=== PATIENT | male | born 1960 | race Caucasian/White ===

== ENCOUNTER 2022-03-03 05:07 | Observation (INO) | payer OTHER, SELFPAY ==
[2022-03-03] VITALS (53 sets, daily range): BP systolic 93–121; BP diastolic 56–82; PULSE 68–87; RESP 11–25; TEMP 36.2–36.7; O2SAT 94–100; BMI 42.8
--- NOTE | ~2022-03-03 | MR_ITS ---
. EXAMINATION: MR brain/brain stem wo/w con DATE: 03/04/2022 08:58 INDICATION: Transient ischemic attack. TECHNIQUE: Magnetic resonance imaging (MRI) of the brain and brainstem was performed without and with 20 mL MultiHance intravenous contrast. COMPARISON: Head CT 03/03/2022 FINDINGS: There are small old infarcts in left cerebellum. There are scattered areas of nonspecific i ncreased T2-weighted signal intensity in the cerebral white matter, which is within normal limits for the patient's age. There is no intracranial hemorrhage, acute infarction, or abnormal intracranial m ass lesion. The ventricles are normal in size. The paranasal sinuses are clear. The orbits are normal . The mastoid air cells are normal. IMPRESSION: 1. 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 Reviewed, dictated and finalized at location A.
--- NOTE | ~2022-03-03 | XR_ITS ---
EXAMINATION: XR chest 1V portable DATE: 03/03/2022 06:05 INDICATION: Stroke. Expressive aphasia. TECHNIQUE: A single frontal view of the chest was obtained. COMPARISON: None. FINDINGS: There are mild airspace opacities in left mid and lower lung zones. No pleural effusion or pneumothorax. The heart size is normal. IMPRESSION: 1. Mild airspace opacities in left mid and lower lung zones, consistent with atelectasis versus pneum onia. Reviewed, dictated and finalized at location A. IMPRESSION: 1. Mild airspace opacities in left mid and lower lung zones, consistent with at electasis versus pneumonia.
--- NOTE | ~2022-03-03 | CT_ITS ---
EXAMINATION: CT brain wo con DATE: 03/03/2022 05:32 INDICATION: Expressive aphasia. TECHNIQUE: Computed tomography (CT) of the head was performed without intravenous contrast. The mA wa s adjusted according to patient size. Iterative reconstruction technique was employed. The dose-lengt h product was 605.33 mGy-cm. COMPARISON: None FINDINGS: There is no intracranial hemorrhage, acute infarction, or abnormal intracranial mass lesion . There is a small old infarct in left cerebellum. The ventricles are normal in size. The orbits are normal. The paranasal sinuses are clear. The mastoid air cells are normal. IMPRESSION: 1. Small old infarct in left cerebellum. Reviewed, dictated and finalized at location A.
--- NOTE | ~2022-03-03 | US_ITS ---
EXAMINATION: US carotid duplex BI DATE: 03/03/2022 15:38 INDICATION: Expressive aphasia. TECHNIQUE: Grayscale, color Doppler, and pulsed Doppler images of the cervical carotid arteries were obtained. The degree of vessel stenosis is placed in one of the following categories: normal, <50%, 5 0-69%, >=70% but less than near-occlusion, near-occlusion, or total occlusion. Note that percent sten osis relative to normal distal artery lumen diameter is indirectly measured from velocity measurement s as described by Sarwat, et al. Radiology 2003; 229:340-346. COMPARISON: None. FINDINGS: RIGHT: The right common carotid artery (CCA) peak systolic velocity (PSV) is 90 cm/s. The right internal car otid artery (ICA) PSV is 76 cm/s. The right ICA end-diastolic velocity (EDV) is 27 cm/s. The right IC A/CCA PSV ratio is 0.8. Grayscale and color Doppler images yield an estimate of <50% diameter reducti on from plaque in the ICA. There is antegrade flow in the right vertebral artery. LEFT: The left CCA PSV is 101 cm/s. The left ICA PSV is 93 cm/s. The left ICA EDV is 37 cm/s. The left ICA/ CCA PSV ratio is 0.9. Grayscale and color Doppler images yield an estimate of <50% diameter reduction from plaque in the ICA. There is antegrade flow in the left vertebral artery. IMPRESSION: 1. <50% stenosis in the right internal carotid artery. 2. <50% stenosis in the left internal carotid artery. Reviewed, dictated and finalized at location A.
--- NOTE | 2022-03-03 05:09 | ECG_ITS ---
Measurements Intervals [place] Rate: 77 P: [place]: 0 QRS: 29 QRSD: 106 T: -67 QT: 385 QTc: 438 Interpretive Statements ATRIAL FIBRILLATION MODERATE T-WAVE ABNORMALITY, CONSIDER INFERIOR ISCHEMIA [-0.1+ mV T-WAVE IN II/aVF] POOR R WAVE PROGRESSION NO PREVIOUS ECG AVAILABLE FOR COMPARISON Electronically Signed On 03-03-2022 10:19:37 CDT by Marylin Smith MD
[2022-03-03 05:16] LABS: Glucose Point of Care 151 mg/dl (65-105)
--- NOTE | 2022-03-03 05:20 | PC.NURSE ---
Pt to CT scan via stretcher at this time.
[2022-03-03 05:22] LABS: Basophils Absolute Auto 0.1 K/mm3 (0.0-0.1); Basophils Percent Auto 0.5 % (0.2-1.2); Eosinophils Absolute Auto 0.2 K/mm3 (0-0.3); Eosinophils Percent Auto 1.6 % (0-4.4); Hematocrit 47.9 % (42.0-52.0); Hemoglobin 15.9 g/dL (14.0-18.0); Immature Granulocyte Absolute 0.04 K/mm3 (0.00-0.031); Immature Granulocyte Percent A 0.4 % (0-0.5); Lymphocytes Absolute Auto 2.81 K/mm3 (0.9-3.2); Lymphocytes Percent Auto 30.6 % (18.3-44.2); Mean Corpuscular HGB Conc 33.2 g/dl (32-36); Mean Corpuscular Volume 87.4 fl (80-100); Mean Platelet Volume 9.8 fl (7.4-10.4); Monocytes Absolute Auto 0.8 K/mm3 (0.1-0.6); Monocytes Percent Auto 8.6 % (2.6-8.5); Neutrophils Absolute Auto 5.4 K/mm3 (1.3-6.7); Neutrophils Percent Auto 58.3 % (45.5-73.1); Platelet Count Result 202 k/mm3 (150-375); Red Blood Count 5.48 M/mm3 (4.6-6.20); Red Cell Distribution Width 13.7 % (11.5-14.5); White Blood Count 9.2 K/mm3 (4.5-10.0)
--- NOTE | 2022-03-03 05:28 | ED.GENADULT ---
HPI - General Adult General Chief complaint: Altered Mental Status <Blake Falcon MD - Last Filed: 03/03/22 07:06> Stated complaint: AMS <Blake Falcon MD - Last Filed: 03/03/22 07:06> Time Seen by Provider: 03/03/22 05:08 <Blake Falcon MD - Last Filed: 03/03/22 07:06> History of Present Illness HPI narrative: Patient is a 61-year-old male who presents ER with altered mental status. Patient's woke up in bed and looked over at him and he was just staring. He would not respond to her stimulation. EMS arrived and patient will try to mumble but cannot speak. While in the the care of EMS began to speak some but was not clear. Upon arrival at the ER patient is awake alert and oriented x3. He reports that he recalls being in bed with his spouse and that she was worried and talking to him but he was unable to physically speak to her. He remembers everything that was occurring but reports inability to speak and when he could start to speak it being slurred. Denies any weakness in arm or leg. There is no reported facial droop. Patient denies history of CVA but does report that he has a clotting disorder. He takes warfarin for this. He is seen by a air and water filler at [facility]. Patient reports compliance with home medication. Denies history of irregular heartbeat or CVA. He reports he does have mitral valve regurgitation. <Blake Falcon MD - Last Filed: 03/03/22 07:06> Related Data Home medications: Home Medications Medication Instructions Recorded Confirmed lisinopril 5 mg tablet 5 mg HS 03/03/22 03/03/22 metoprolol succinate 100 mg 100 mg PO BID 03/03/22 03/03/22 tablet,extended release 24 hr torsemide 20 mg tablet 40 mg DAILY 03/03/22 03/03/22 warfarin 5 mg tablet 8 mg DAILY 03/03/22 03/03/22 <Blake Falcon MD - Last Filed: 03/03/22 07:06> Allergies/adverse reactions: Allergies Allergy/AdvReac Type Severity Reaction Status Date / Time No Known Allergies Allergy Verified 03/03/22 05:09 <Blake Falcon MD - Last Filed: 03/03/22 07:06> Review of Systems Review of Systems: All systems reviewed & are unremarkable except as noted in HPI and below <Blake Falcon MD - Last Filed: 03/03/22 07:06> Constitutional: Constitutional: Denies chills, Denies fatigue and Denies fever(s) <Blake Falcon MD - Last Filed: 03/03/22 07:06> Eyes: Eyes: Denies change in vision and Denies photophobia <Blake Falcon MD - Last Filed: 03/03/22 07:06> ENT: Denies nasal congestion and Denies sore throat <Blake Falcon MD - Last Filed: 03/03/22 07:06> Cardiovascular: Cardiovascular: Denies chest pain, Denies rapid heart rate and Denies radiating jaw, neck or arm pain <Blake Falcon MD - Last Filed: 03/03/22 07:06> Respiratory: Respiratory: Denies cough, Denies dyspnea and Denies wheezing <Blake Falcon MD - Last Filed: 03/03/22 07:06> Gastrointestinal: Gastrointestinal: Denies abdominal pain, Denies nausea and Denies vomiting <Blake Falcon MD - Last Filed: 03/03/22 07:06> Neurologic: Denies headache(s), Denies focal weakness and Denies numbness <Blake Falcon MD - Last Filed: 03/03/22 07:06> Comments: Inability to speak <Blake Falcon MD - Last Filed: 03/03/22 07:06> COUNT INCLUDES THE [facility] Past Medical History Medical History: Medical History (Updated 03/03/22 @ 07:06 by Blake Falcon MD) CHF (congestive heart failure) DVT (deep venous thrombosis) Hypertension Mitral valve regurgitation <Blake Falcon MD - Last Filed: 03/03/22 07:06> Surgical History Surgical History: Surgical History (Updated 03/03/22 @ 05:51 by Blake Falcon MD) H/O bone graft History of cholecystectomy <Blake Falcon MD - Last Filed: 03/03/22 07:06> Social History Social History: Social History (Updated 03/03/22 @ 05:52 by Blake Falcon MD) Social History: History of tobacco abuse <Lee
[2022-03-03 05:33] LABS: Alanine Aminotransferase 17 U/L (6-50); Albumin Level 3.9 g/dL (3.5-5.1); Alkaline Phosphatase 47 U/L (38-126); Anion Gap 9 mmol/L (8-16); Aspartate Amino Transferase 24 U/L (17-59); Bilirubin,Total 0.8 mg/dL (0.2-1.3); Blood Urea Nitrogen 19 mg/dL (9-20); Calcium 8.4 mg/dL (8.4-10.2); Carbon Dioxide 27 mmol/L (22-30); Chloride 101 mmol/L (98-107); Estimated CRCL calculation 103 ml/min; Estimated Glomerular Filt Rate > 60; Glucose 135 mg/dL (65-110); Potassium 3.7 mmol/L (3.4-5.0); Sodium 137 mmol/L (137-145)
[2022-03-03 05:34] LABS: INR 2.7; Prothrombin Time 27.4 Seconds (11.1-14.7)
[2022-03-03 05:35] LABS: Partial Thromboplastin Time 35.3 SECONDS (22.3-36.8)
[2022-03-03 06:26] LABS: Troponin I < 0.012 ng/mL (0.000-0.034)
[2022-03-03] MEDS: ASPIRIN 81 MG CHEWABLE TABLET 324 MG PO (06:30)
--- NOTE | 2022-03-03 07:18 | PC.NURSE ---
Patient report received from CHARISMA Horvath. All questions answered and care of patient assumed. Patient resting comfortably in the stretcher at this time. Call-light within reach. NAD at this time. VSS. Patient alert and oriented x4. Denies any complaints. Awaiting disposition. Transfer anticipated. Will continue to address needs at they arise.
[2022-03-03] MEDS: ATORVASTATIN 40 MG TABLET PO (07:38)
[2022-03-03 08:15] LABS: Appearance Urine Clear (Clear); Bilirubin Urine Negative (Negative); Blood Urine Negative (Negative); Color Urine Yellow (Yellow); Glucose Urine UA Negative (Negative); Ketones Urine Negative (Negative); Leukocyte Esterase Ur Negative LEU/UL (Negative); Nitrate Urine Negative (Negative); Protein Urine Negative (Negative); pH Urine 5.5 (5.0-9.0)
[2022-03-03 08:21] LABS: Add Urine Microscopic? NO
--- NOTE | 2022-03-03 08:35 | PC.NURSE ---
Received call from [facility] Transfer Center regarding transfer. They were inquiring as to whether or not patient still needed to be transferred. This RN communicated that we were still requesting a transfer and a bed was still requested. No ETA at this time.
[2022-03-03 10:01] LABS: SARS-CoV-2 RNA PCR Negative
--- NOTE | 2022-03-03 11:03 | PC.NURSE ---
Patient report given to CHARISMA Handy. All questions answered and care of patient transferred.
[2022-03-03] MEDS: TORSEMIDE 20 MG TABLET 40 MG PO (11:54)
--- NOTE | 2022-03-03 16:00 | ADMGEN ---
This patient, Roger Riley, was admitted to Medical Room 246-01. Patient/family oriented to hospital policies and general routines including ID bracelet, bed and alarms, visiting hours, pain management, procedures, bathroom and other care routines, personal items, smoking policy, room service/diet, and visiting hours. Information on how to activate the Rapid Response Team has been discussed. Patient/Family are encouraged to report perceived risks to care and to ask questions if they do not understand what they are told or what they should do.
--- NOTE | 2022-03-03 16:13 | PM.IMHP ---
H&P: HPI History of Present Illness Date/Time: 03/03/22 16:13 Chief Complaint: Acute mental status changes Narrative: ED-HPI narrative: ? ? ? Patient is a 61-year-old male who presents ER with altered mental status.? Patient's woke up in bed and looked over at him and he was just staring.? He would not respond to her stimulation.? EMS arrived and patient will try to mumble but cannot speak.? While in the the care of EMS began to speak some but was not clear.? Upon arrival at the ER patient is awake alert and oriented x3.? He reports that he recalls being in bed with his spouse and that she was worried and talking to him but he was unable to physically speak to her.? He remembers everything that was occurring but reports inability to speak and when he could start to speak it being slurred.? Denies any weakness in arm or leg.? There is no reported facial droop.? Patient denies history of CVA but does report that he has a clotting disorder.? He takes warfarin for this.? He is seen by a physics department chair at [facility].? Patient reports compliance with home medication.? Denies history of irregular heartbeat or CVA.? He reports he does have mitral valve regurgitation.? currently patient is ambulating in the room without difficulty, he has Fluent speech and speaks without difficulty or hesitation, and there is no asymmetry of his facial expression, CT scan of the head was negative for any acute injury, bilateral carotid ultrasound did not show any stenosis, to further evaluate will do MRI of the brain, cardiac echo and EEG, unfortunately there is no neurologist currently available in the hospital, ER physician contacted [facility] for Neurology transferred and [facility] pending bed availability, will have a PT OT evaluate the patient and further recommendation to follow. patient states he has a history of clotting disorder and chronic lower extremity DVT for which he is taking Coumadin and his INR is 2.7 therapeutic. Review of Systems Review of Systems: All systems reviewed & are unremarkable except as noted in HPI and below PMFSH Past Medical History Medical History (Updated 03/03/22 @ 07:06 by Blake Falcon MD) CHF (congestive heart failure) DVT (deep venous thrombosis) Hypertension Mitral valve regurgitation Surgical History Surgical History (Updated 03/03/22 @ 05:51 by Blake Falcon MD) H/O bone graft History of cholecystectomy Social History Social History (Updated 03/03/22 @ 05:52 by Blake Falcon MD) Social History: History of tobacco abuse Meds Home Medications and Allergies Home Medications Medication Instructions Recorded Confirmed Type lisinopril 5 mg tablet 5 mg HS 03/03/22 03/03/22 History metoprolol succinate 100 mg 100 mg PO BID 03/03/22 03/03/22 History tablet,extended release 24 hr torsemide 20 mg tablet 40 mg DAILY 03/03/22 03/03/22 History warfarin 5 mg tablet 8 mg DAILY 03/03/22 03/03/22 History Allergies Allergy/AdvReac Type Severity Reaction Status Date / Time No Known Allergies Allergy Verified 03/03/22 05:09 Vital Signs Vital Signs - 24 hr 03/03/22 05:02 03/03/22 05:20 03/03/22 05:50 Temperature 98.0 F Pulse Rate 79 81 76 Respiratory Rate 19 21 H 21 H Blood Pressure 120/75 107/69 96/58 L Pulse Oximetry 97 99 96 Oxygen Delivery Room Air 03/03/22 06:05 03/03/22 06:30 03/03/22 05:13 Temperature Pulse Rate 77 75 Respiratory Rate 17 21 H Blood Pressure 107/65 107/65 Pulse Oximetry 96 97 Oxygen Delivery 03/03/22 05:15 03/03/22 05:16 03/03/22 05:30 Temperature Pulse Rate 78 82 78 Respiratory Rate 25 H 23 H 21 H Blood Pressure 106/71 Pulse Oximetry 95 95 95 Oxygen Delivery 03/03/22 05:31 03/03/22 05:45 03/03/22 05:51 Temperature Pulse Rate 83 76 86 Respiratory Rate 24 H 18 20 Blood Pressure 101/68 93/72 L Pulse Oximetry 96 96 96 Oxygen Delivery
[2022-03-03 16:27] LABS: Glucose Point of Care 128 mg/dl (65-105)
[2022-03-03 18:21] LABS: Troponin I < 0.012 ng/mL (0.000-0.034)
[2022-03-03] MEDS: METOPROLOL SUCCINATE EXT REL 100 MG TABCR PO (19:10)
[2022-03-03 21:02] LABS: Troponin I < 0.012 ng/mL (0.000-0.034)
[2022-03-03] MEDS: WARFARIN (*PBKC) 4 MG TABLET 8 MG BY MOUTH (21:46)
[2022-03-03] MEDS: lisinopriL 5 MG TABLET BY MOUTH (21:47)
[2022-03-04] VITALS (9 sets, daily range): BP systolic 98–106; BP diastolic 54–68; PULSE 68–95; RESP 18; TEMP 35.7–36.6; O2SAT 97–100
[2022-03-04 05:52] LABS: Basophils Absolute Auto 0.1 K/mm3 (0.0-0.1); Basophils Percent Auto 0.5 % (0.2-1.2); Eosinophils Absolute Auto 0.2 K/mm3 (0-0.3); Eosinophils Percent Auto 1.7 % (0-4.4); Hematocrit 46.1 % (42.0-52.0); Immature Granulocyte Absolute 0.03 K/mm3 (0.00-0.031); Immature Granulocyte Percent A 0.3 % (0-0.5); Lymphocytes Absolute Auto 2.48 K/mm3 (0.9-3.2); Mean Corpuscular HGB Conc 32.5 g/dl (32-36); Mean Corpuscular Hemoglobin 29.1 pg (26-34); Mean Corpuscular Volume 89.5 fl (80-100); Mean Platelet Volume 9.9 fl (7.4-10.4); Monocytes Absolute Auto 1.1 K/mm3 (0.1-0.6); Neutrophils Absolute Auto 5.4 K/mm3 (1.3-6.7); Neutrophils Percent Auto 58.5 % (45.5-73.1); Platelet Count Result 190 k/mm3 (150-375); Red Blood Count 5.15 M/mm3 (4.6-6.20); Red Cell Distribution Width 13.7 % (11.5-14.5); White Blood Count 9.2 K/mm3 (4.5-10.0)
[2022-03-04 05:58] LABS: INR 2.6; Prothrombin Time 26.7 Seconds (11.1-14.7)
--- NOTE | 2022-03-04 06:00 | ECHO_ITS ---
Patient Info Name: Roger Riley Age: 61 years : 1960 Gender: Male Ht: 72 in Wt: 316 lbs BSA: 2.76 m2 HR: 73 bpm BP: 98 / 54 mmHg Heart Rhythm: Atrial Fibrillation Technical Quality: Fair Exam Date: 03/04/2022 7:39 AM Exam Location: [facility] Patient Status: Inpatient Admit Date: 03/03/2022 Staff Ordering Physician: Fly Rockwell DO Rn Women Services: Hermelinda Butts RDCS Attending Provider: Ashia Boyd MD Referring Physician: Moiz COOPER; Exam Type: CA echo doppler color flow Study Info Indications I50.1 - Left ventricular failure Complete two-dimensional, color flow and Doppler transthoracic echocardiogram is performed with contrast to opacify the left ventricle and to improve the deliniation of the left ventricle endocardial borders. Contrast/Agitated Saline Contrast/Ag. Saline: Definity Amount: 3.00 ml Administered By: Hermelinda Butts RDCS Existing IV Access: Yes IV Access Condition: patent with no signs of infiltration Summary 1. Left ventricular chamber dimension is normal. 2. Definity contrast administered improved wall motion interpretation. 3. Left ventricular systolic function is normal, estimated at 65-70%. 4. There is mildly increased left ventricular wall thickness. 5. The left ventricular diastolic function is abnormal. 6. E/e' 14 is mildly elevated. 7. Atrial fibrillation. 8. Left atrial chamber dimension is moderately enlarged. 9. There is mild aortic valve sclerosis. 10. The mitral valve has mildly calcified annulus. 11. There is trace mitral valve regurgitation. 12. There is mild tricuspid valve regurgitation. 13. Mild pulmonary hypertension, estimated pulmonary arterial systolic pressure is 49 mmHg. 14. Dilated inferior vena cava with <50% collapse upon inspiration consistent with significantly elevated right atrial pressure, 15 mmHg. Left Ventricle E/e' 14 is mildly elevated. Definity contrast administered improved wall motion interpretation. Left ventricular chamber dimension is normal. Left ventricular systolic function is normal, estimated at 65-70%. There is mildly increased left ventricular wall thickness. The left ventricular diastolic function is abnormal. Atrial fibrillation. Right Ventricle Right ventricular chamber dimension is normal. Right ventricular systolic function is normal. Left Atria Left atrial chamber dimension is moderately enlarged. Right Atria Right atrial chamber dimension is normal. Aortic Valve The aortic valve is trileaflet. There is mild aortic valve sclerosis. There is no aortic valve stenosis. There is no aortic valve regurgitation. Pulmonic Valve There is no pulmonic regurgitation. Mitral Valve The mitral valve has mildly calcified annulus. There is no mitral valve stenosis. There is trace mitral valve regurgitation. Tricuspid Valve There is mild tricuspid valve regurgitation. Mild pulmonary hypertension, estimated pulmonary arterial systolic pressure is 49 mmHg. Pericardium/Pleural There is no pericardial effusion. Inferior Vena Cava Dilated inferior vena cava with <50% collapse upon inspiration consistent with significantly elevated right atrial pressure, 15 mmHg. Aorta The aortic root size at the sinus of Valsalva is normal. Left Ventricular Outflow Tract Name Value
[2022-03-04 06:03] LABS: Anion Gap 8 mmol/L (8-16); Blood Urea Nitrogen 17 mg/dL (9-20); Calcium 8.1 mg/dL (8.4-10.2); Carbon Dioxide 30 mmol/L (22-30); Chloride 100 mmol/L (98-107); Estimated CRCL calculation 94 ml/min; Estimated Glomerular Filt Rate > 60; Glucose 115 mg/dL (65-110); Potassium 3.6 mmol/L (3.4-5.0); Sodium 138 mmol/L (137-145)
[2022-03-04] MEDS: PERFLUTREN LIPID MICROSPHERES 1.5 ML VIAL DILUTED TO 10 ML TOTAL VOLUME IV PUSH (08:00)
--- NOTE | 2022-03-04 08:08 | IVDEFINITY ---
Prior to administration of IV Definity the patient was educated on the risks and benefits of the imaging enhancing agent including potential adverse side effects. The patient verbalized understanding. Allergies were verified. No exclusion criteria were identified and at least one of the following inclusion criteria were met: 1) physician request, 2) patient technically difficult to image (per the [place] [employer] guidelines of two or more segments not discernable within the apical view), or 3) questionable left ventricular function. ?
[2022-03-04] MEDS: TORSEMIDE 20 MG TABLET 40 MG BY MOUTH (09:15)
[2022-03-04] MEDS: METOPROLOL SUCCINATE EXT REL 100 MG TABCR PO (09:15)
[2022-03-04] MEDS: ASPIRIN 81 MG ENTERIC TABLET PO (09:15)
[2022-03-04] MEDS: polyethylene glycoL 3350 17 GM POWD.PACK PO (11:45)
[2022-03-04] MEDS: SILVERGEL (ELTA) 45 ML 1 APPLIC TOPICAL (11:57)
[2022-03-04] MEDS: EUCERIN CREAM 120 GM JAR 1 APPLIC TOPICAL (11:57)
--- NOTE | 2022-03-04 16:03 | PM.DS ---
DS: Admitting Diagnosis Discharge Date 03/04/2022 Admitting Diagnosis Acute mental status changes DS: Discharge Diagnosis Discharge Diagnosis (1) Brain TIA: Code(s): G45.9 - Transient cerebral ischemic attack, unspecified Status: Acute Assessment and Plan: ? ? ? Patient is a 61-year-old male who presents ER with altered mental status.? Patient's woke up in bed and looked over at him and he was just staring.? He would not respond to her stimulation.? EMS arrived and patient will try to mumble but cannot speak.? While in the the care of EMS began to speak some but was not clear.? Upon arrival at the ER patient is awake alert and oriented x3.? He reports that he recalls being in bed with his spouse and that she was worried and talking to him but he was unable to physically speak to her.? He remembers everything that was occurring but reports inability to speak and when he could start to speak it being slurred.? Denies any weakness in arm or leg.? There is no reported facial droop.? Patient denies history of CVA but does report that he has a clotting disorder.? He takes warfarin for this.? He is seen by a skiver blockers at [facility].? Patient reports compliance with home medication.? Denies history of irregular heartbeat or CVA.? He reports he does have mitral valve regurgitation.? currently patient is ambulating in the room without difficulty, he has Fluent speech and speaks without difficulty or hesitation, and there is no asymmetry of his facial expression, CT scan of the head was negative for any acute injury, bilateral carotid ultrasound did not show any stenosis, to further evaluate will do MRI of the brain, cardiac echo and EEG, unfortunately there is no neurologist currently available in the hospital, ER physician contacted [facility] for Neurology transferred and [facility] pending bed availability, will have a PT OT evaluate the patient and further recommendation to follow. patient states he has a history of clotting disorder and chronic lower extremity DVT for which he is taking Coumadin and his INR is 2.7 therapeutic. patient admitted to observation status (2) A-fib: Code(s): I48.91 - Unspecified atrial fibrillation Status: Acute Assessment and Plan: patient with history of atrial fibrillation rate is controlled with metoprolol 100 mg b.i.d. and anticoagulated with warfarin and INR is therapeutic. DS: Summary Hospital Course Reason for hospitalization: ? Patient is a 61-year-old male who presents ER with altered mental status.? Patient's woke up in bed and looked over at him and he was just staring.? He would not respond to her stimulation.? EMS arrived and patient will try to mumble but cannot speak.? While in the the care of EMS began to speak some but was not clear.? Upon arrival at the ER patient is awake alert and oriented x3.? He reports that he recalls being in bed with his spouse and that she was worried and talking to him but he was unable to physically speak to her.? He remembers everything that was occurring but reports inability to speak and when he could start to speak it being slurred.? Denies any weakness in arm or leg.? There is no reported facial droop.? Patient denies history of CVA but does report that he has a clotting disorder.? He takes warfarin for this.? He is seen by a skiver blockers at [facility].? Patient reports compliance with home medication.? Denies history of irregular heartbeat or CVA.? He reports he does have mitral valve regurgitation.? ?currently patient is ambulating in the room without difficulty, he has Fluent speech and speaks without difficulty or hesitation, and there is no asymmetry of his facial expression,? CT scan of the head was negative for any acute injury,? bilateral carotid ultrasound did not show any stenosis,? to further evaluate will do MRI of the brain, cardiac echo and EEG, unfortunately t
--- NOTE | 2022-03-04 21:00 | WPDNEUROLOGY ---
Neurology EEG Report General Information Date of Study: 03/04/22 TEST EEG DIAGNOSIS Transient Impairment of awareness CONDITION OF RECORDING Awake and asleep CLINICAL HISTORY Transient episode of impaired awareness described as a stare with expressive aphasia and dysarthria. EEG DESCRIPTION Wakefulness, drowsiness and stage II sleep were obtained. During wakefulness, there was a posterior background of low to moderate voltage 7-8 Hz activity. During drowsiness, there was a physiologic slowing and symmetric vertex sharp waves. During stage II sleep, there were symmetrical sleep spindles and K complexes. Hyperventilation and photic stimulation were not performed. IMPRESSION This EEG was abnormal due the presence of mild diffuse background slowing. This EEG was indicative of the presence of mild , bihemispheric cerebral dysfunction of the type seen most commonly in the setting of mild toxicometabolic encephalopathy. No epileptiform activity was present.
== END 2022-03-04 16:46 | disposition home or self-care (01) ==
LOC: ANHED 07:06 → ANH2MED 15:09
PROVIDERS: Emergency Medicine; Admitting Provider Family Medicine; Emergency Provider Emergency Medicine; PCP Nurse Practitioner Family; Visit Provider Family Medicine
DX: G45.9 Transient cerebral ischemic attack, unspecified (principal); I48.91 Unspecified atrial fibrillation; I11.0 Hypertensive heart disease with heart failure; I50.9 Heart failure, unspecified; I08.2 Rheumatic disorders of both aortic and tricuspid valves; I27.20 Pulmonary hypertension, unspecified; Z86.718 Personal history of other venous thrombosis and embolism; E66.01 Morbid (severe) obesity due to excess calories; Z68.41 Body mass index [BMI] 40.0-44.9, adult; R29.700 NIHSS score 0; Z20.822 Contact with and (suspected) exposure to COVID-19; Z79.82 Long term (current) use of aspirin; Z79.01 Long term (current) use of anticoagulants; Z79.899 Other long term (current) drug therapy
CPT/HCPCS: 36415; 70450; 70553; 71045; 80048; 80053; 81003; 82948; 83735; 84484; 85025; 85610; 85730; 93005; 93880; 95816; 96374; 99285; A9270; A9577; C8929; C9803; G0378; G0379; Q9957; U0003; U0005

== ENCOUNTER 2022-06-15 17:41 | Emergency (ER) | payer OTHER, SELFPAY ==
[2022-06-15 17:54] VITALS: BP 106/69; PULSE 72; RESP 18; TEMP 35.9; O2SAT 100
--- NOTE | 2022-06-15 18:55 | ED.WOUNDLAC ---
HPI - Wound/Laceration General Chief Complaint: Wound/Laceration Stated Complaint: left 2nd finger infected Time Seen by Provider: 06/15/22 18:55 Source: patient Mode of arrival: ambulatory Limitations: no limitations History of Present Illness HPI narrative: 61 y/o male presented for c/o left index wound after unknown injury yesterday. Unsure what happened. Has kept it clean with bandaid in place. Reports pain 1.5/10. Reports surrounding redness and is concerned for infection. Hx venous ulcers following with wound care. Related Data Home Medications Medication Instructions Recorded Confirmed lisinopril 5 mg tablet 5 mg HS 03/03/22 06/15/22 metoprolol succinate 100 mg 100 mg PO BID 03/03/22 06/15/22 tablet,extended release 24 hr torsemide 20 mg tablet 40 mg DAILY 03/03/22 06/15/22 warfarin 5 mg tablet 8 mg DAILY 03/03/22 06/15/22 Allergies Allergy/AdvReac Type Severity Reaction Status Date / Time No Known Allergies Allergy Verified 06/15/22 18:05 Review of Systems Review of Systems: CONSTITUTIONAL: Denies body aches, fever, chills, or sweats. CARDIOVASCULAR: Denies chest pain, palpitations, or edema. RESPIRATORY: Denies cough or dyspnea. GASTROINTESTINAL: Denies abdominal pain, nausea, vomiting, or diarrhea. SKIN: reports abrasion to left finger MUSCULOSKELETAL: Denies back pain, joint pain, or myalgia. NEUROLOGIC: Denies headache, numbness, tingling, or weakness. [facility] Past Medical History Medical History CHF (congestive heart failure) DVT (deep venous thrombosis) Hypertension Mitral valve regurgitation Surgical History Surgical History H/O bone graft History of cholecystectomy Social History Social History Social History: History of tobacco abuse Smoking status: Current every day smoker Tobacco type: cigars Alcohol intake: current Drinks per week: 1 Substance use: never Substance use type: does not use Spiritual care concerns: No Comments At time of signature, I have reviewed and agree with nursing past medical, surgical, social and family history unless otherwise noted. Please see nursing chart for further information. There is no relevant family history pertinent to the presenting complaint Exam Narrative: GENERAL: Well-appearing EYES: conjunctivae clear, and EOMI. ENT: Mucous membranes moist. Oropharynx without edema, erythema or lesions. NECK: Supple. No lymphadenopathy CHEST: Clear to auscultation. HEART: Regular rate and rhythm. SKIN: Warm, dry. approx 2mm circular superficial abrasion to DIP left 2nd finger, no swelling, fluctuance, tenderness or decreased ROM. NEURO: Alert and oriented x3. Course Course Emergency Course: Patient is aware of diagnosis, understands and agrees to treatment plan. Anticipatory guidance given. Patient agrees to follow-up as directed and is aware of reasons to seek care at the emergency department. Portions of this record may have been created with voice recognition software Level of Care: Express Care Visit Vital Signs Vital signs: Vital Signs Temperature 96.7 F L 06/15/22 17:54 Pulse Rate 72 06/15/22 17:54 Respiratory Rate 18 06/15/22 17:54 Blood Pressure 106/69 06/15/22 17:54 Pulse Oximetry 100 06/15/22 17:54 Oxygen Delivery Room Air 06/15/22 17:54 Temperature 96.7 F L 06/15/22 17:54 Pulse Rate 72 06/15/22 17:54 Respiratory Rate 18 06/15/22 17:54 Blood Pressure 106/69 06/15/22 17:54 Pulse Oximetry 100 06/15/22 17:54 Oxygen Delivery Room Air 06/15/22 17:54 Reviewed MDM - Wound/Laceration MDM Narrative Medical decision making narrative: PE does not show cellulitis or apparent infection. Advised topical abx. Pt appeared irritable regarding no Rx for oral abx. Advised supportive measures and signs/s
== END 2022-06-15 19:03 | disposition home or self-care (01) ==
PROVIDERS: Emergency Provider Nurse Practitioner Family; PCP Nurse Practitioner Family
DX: S60.411A Abrasion of left index finger, initial encounter (principal); X58.XXXA Exposure to other specified factors, initial encounter; I11.0 Hypertensive heart disease with heart failure; I50.9 Heart failure, unspecified; I34.0 Nonrheumatic mitral (valve) insufficiency; Z86.718 Personal history of other venous thrombosis and embolism
CPT/HCPCS: 99213; G0463

== ENCOUNTER 2022-07-25 01:11 | Emergency (ER) | payer OTHER, SELFPAY ==
--- NOTE | ~2022-07-25 | CT_ITS ---
EXAMINATION: CT brain wo con DATE: 07/25/2022 01:56 INDICATION: Transient ischemic episode. Was found poorly arousable by patient's . TECHNIQUE: Computed tomography (CT) of the head was performed without intravenous contrast. Sagittal and coronal reconstructions were performed. The mA was adjusted according to patient size. Iterative reconstruction technique was employed. The dose-length product was 681.00 mGy-cm. COMPARISON: head CT dated 03/03/22 and MRI dated 03/04/22 FINDINGS: Again seen are small old infarcts in the bilateral cerebellar hemispheres. No acute intracranial hemo rrhage, acute infarction or abnormal extra axial fluid collection. Ventricles are normal and symmetri c. No mass/mass effect. Mild mucosal thickening the right sphenoid sinus. The orbits and mastoid air cells are normal. IMPRESSION: 1. 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 No acute intracranial process. Reviewed, dictated and finalized at location A. ER METAL IMPRESSION: 1. 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 No acute intracranial proc ess.
[2022-07-25 01:11] VITALS: BP 107/72; PULSE 99; RESP 20; TEMP 36.8; O2SAT 95
--- NOTE | 2022-07-25 01:23 | ECG_ITS ---
Measurements Intervals [place] Rate: 89 P: SC: 0 QRS: -7 QRSD: 119 T: -35 QT: 362 QTc: 440 Interpretive Statements ATRIAL FIBRILLATION BASELINE ARTIFACT MODERATE INTRAVENTRICULAR CONDUCTION DELAY [110+ ms QRS DURATION] NONSPECIFIC T-WAVE ABNORMALITY ABNORMAL ECG COMPARED TO ECG 03/03/2022 05:07:23 INTRAVENTRICULAR CONDUCTION DELAY NOW PRESENT Electronically Signed On 07-26-2022 17:36:49 [employer] by Can Lujan M.D.
--- NOTE | 2022-07-25 01:41 | ED.AMS ---
HPI - Altered Mental Status General Chief Complaint: Altered Mental Status Stated Complaint: AMS Time Seen by Provider: 07/25/22 01:26 History of Present Illness HPI narrative: 61-year-old male presenting to the emergency department for evaluation of altered mental status. states the patient was sleeping soundly and she was having difficulty trying to awaken. did call EMS. Upon arrival to the scene EMS was able to wake up the patient and when waking up patient was confused. EMS states that the patient a few minutes to get back to his baseline. By the time the patient arrived to the emergency department he was back to baseline denied any confusion. Patient is alert and oriented x4. Patient is able to provide his past medical history. Patient does have a prior history of a TIA back in February and is scheduled to follow-up with neurology at [facility]. Patient does follow-up with cardiology as well as with as well. Related Data Home Medications Medication Instructions Recorded Confirmed lisinopril 5 mg tablet 5 mg HS 03/03/22 06/15/22 metoprolol succinate 100 mg 100 mg PO BID 03/03/22 06/15/22 tablet,extended release 24 hr torsemide 20 mg tablet 40 mg DAILY 03/03/22 06/15/22 warfarin 5 mg tablet 8 mg DAILY 03/03/22 06/15/22 Allergies Allergy/AdvReac Type Severity Reaction Status Date / Time No Known Allergies Allergy Verified 07/25/22 01:22 Review of Systems Review of Systems: CONSTITUTIONAL: Denies fever, chills, or sweats. EYES: Denies visual changes, redness, or discharge. ENT: Denies rhinorrhea, congestion, sore throat, or otalgia. CARDIOVASCULAR: Denies chest pain, palpitations, or edema. RESPIRATORY: Denies cough or dyspnea. GASTROINTESTINAL: Denies abdominal pain, nausea, vomiting, or diarrhea. GENITOURINARY: Denies dysuria or hematuria. SKIN: Denies rash or itching. MUSCULOSKELETAL: Denies back pain, joint pain, or myalgia. NEUROLOGIC: Denies headache, numbness, or weakness. [facility] Past Medical History Medical History CHF (congestive heart failure) DVT (deep venous thrombosis) Hypertension Mitral valve regurgitation Surgical History Surgical History H/O bone graft History of cholecystectomy Social History Social History Social History: History of tobacco abuse Smoking status: Current every day smoker Tobacco type: cigars Alcohol intake: current Drinks per week: 1 Substance use: never Substance use type: does not use Spiritual care concerns: No Exam Narrative: APPEARANCE: Well appearing, no pain, no distress, well-nourished. HEAD: normocephalic, atraumatic. EYES: PERRLA/EOMI, conjunctivae clear. NOSE: Normal no drainage EARS:TMS clear with good light reflex. THROAT: Pharynx clear, no exudate. NECK: Supple. No adenopathy, no masses. RESPIRATORY: Airway patent, respirations nonlabored. Clear to auscultation bilaterally, no rales, rhonchi, wheezing. CARDIOVASCULAR: Regular rate and rhythm without murmurs rubs or gallops. ABDOMINAL: Soft, nontender, nondistended, normal bowel sounds MUSCULOSKELETAL: Moves all extremities. Strength/ROM intact, No edema, No calf tenderness. NEURO: Alert. Cranial nerves II through XII intact. Grossly intact. Normal strength and coordination. No difficulty with word finding. NIH scale of 0 SKIN: Warm, dry. Normal Color Course Course Emergency Course: Patient is back to his baseline with no deficits. Patient had a negative head CT. Patient is already on a baby aspirin and Coumadin. Patient does have follow-up scheduled with his neurologist at [facility]. Patient declined admission and prefers to follow-up with his urologist as scheduled. All questions and concerns were addressed. Patient is alert oriented and capable of making this decision. Vital Sign
[2022-07-25 01:53] LABS: Basophils Percent Auto 0.5 % (0.2-1.2); Eosinophils Absolute Auto 0.2 K/mm3 (0-0.3); Eosinophils Percent Auto 2.2 % (0-4.4); Hematocrit 49.5 % (42.0-52.0); Hemoglobin 16.8 g/dL (14.0-18.0); Immature Granulocyte Absolute 0.04 K/mm3 (0.00-0.031); Immature Granulocyte Percent A 0.5 % (0-0.5); Lymphocytes Absolute Auto 3.39 K/mm3 (0.9-3.2); Lymphocytes Percent Auto 38.7 % (18.3-44.2); Mean Corpuscular HGB Conc 33.9 g/dl (32-36); Mean Corpuscular Hemoglobin 29.1 pg (26-34); Mean Corpuscular Volume 85.6 fl (80-100); Mean Platelet Volume 10.2 fl (7.4-10.4); Monocytes Absolute Auto 0.9 K/mm3 (0.1-0.6); Monocytes Percent Auto 10.1 % (2.6-8.5); Neutrophils Absolute Auto 4.2 K/mm3 (1.3-6.7); Platelet Count Result 194 k/mm3 (150-375); Red Blood Count 5.78 M/mm3 (4.6-6.20); Red Cell Distribution Width 13.9 % (11.5-14.5); White Blood Count 8.8 K/mm3 (4.5-10.0)
[2022-07-25 02:00] VITALS: BP 101/76
[2022-07-25 02:08] LABS: Alanine Aminotransferase 22 U/L (6-50); Albumin Level 3.9 g/dL (3.5-5.1); Alkaline Phosphatase 42 U/L (38-126); Anion Gap 11 mmol/L (8-16); Aspartate Amino Transferase 32 U/L (17-59); Bilirubin,Total 0.7 mg/dL (0.2-1.3); Blood Urea Nitrogen 16 mg/dL (9-20); Calcium 8.6 mg/dL (8.4-10.2); Carbon Dioxide 26 mmol/L (22-30); Chloride 100 mmol/L (98-107); Estimated CRCL calculation 100 ml/min; Estimated Glomerular Filt Rate > 60; Glucose 114 mg/dL (65-110); Potassium 3.2 mmol/L (3.4-5.0); Sodium 137 mmol/L (137-145)
[2022-07-25 02:11] LABS: Add Urine Microscopic? YES; Appearance Urine Clear (Clear); Bilirubin Urine Negative (Negative); Blood Urine Negative (Negative); Color Urine Yellow (Yellow); Glucose Urine UA Negative (Negative); Ketones Urine Negative (Negative); Leukocyte Esterase Ur Negative LEU/UL (Negative); Nitrate Urine Negative (Negative); Protein Urine Trace mg/dL (Negative); Specific Grav Ur >= 1.030 (1.001-1.035); Urobilinogen Urine 0.2 mg/dL (<2.0); pH Urine 5.5 (5.0-9.0)
[2022-07-25 02:16] LABS: INR 3.8; Partial Thromboplastin Time 39.9 SECONDS (22.3-36.8); Prothrombin Time 36.1 Seconds (11.1-14.7)
--- NOTE | 2022-07-25 02:26 | PC.NURSE ---
Attempted to call pts for more information about what lead pt being sent to ED, no answer.
[2022-07-25 02:30] LABS: Bacteria Urine Trace /hpf; Mucus Urine Rare /lpf; Squamous Epithelial Cell Urine Rare /hpf (Few); WBC Urine 0-3 /hpf
[2022-07-25 02:48] LABS: Influenza A QL RT-PCR Negative (Negative); Influenza B QL RT-PCR Negative (Negative); RSV RNA, RT-PCR Negative (Negative); SARS-CoV-2 RNA PCR Negative
[2022-07-25 03:06] VITALS: PULSE 90; RESP 20; O2SAT 97
== END 2022-07-25 04:21 | disposition home or self-care (01) ==
PROVIDERS: Emergency Provider Emergency Medicine; PCP Nurse Practitioner Family
DX: G45.9 Transient cerebral ischemic attack, unspecified (principal); Z20.822 Contact with and (suspected) exposure to COVID-19; I50.9 Heart failure, unspecified; I34.0 Nonrheumatic mitral (valve) insufficiency; F17.290 Nicotine dependence, other tobacco product, uncomplicated; Z86.718 Personal history of other venous thrombosis and embolism; Z79.01 Long term (current) use of anticoagulants; I48.91 Unspecified atrial fibrillation; I45.9 Conduction disorder, unspecified; R94.31 Abnormal electrocardiogram [ECG] [EKG]
CPT/HCPCS: 36415; 70450; 80053; 81001; 85025; 85610; 85730; 87637; 93005; 99284